=== PATIENT | male | born 1960 ===

== ENCOUNTER → 2017-03-24 | Outpatient (CLI) | payer OTHER | END | disposition home or self-care (01) | LOC: SPEC 16:52 → EEVIPCON 16:52 | PROVIDERS: ATTEND Nurse Practitioner Family | DX: R79.1 Abnormal coagulation profile (principal) | CPT/HCPCS: 36415; 85610 ==

== ENCOUNTER → 2017-06-15 | Outpatient (CLI) | payer OTHER ==
[2017-06-16 00:18] LABS: ALBUMIN 2.8 g/dL (3.4-5.0); ALBUMIN/GLOBULIN RATIO 0.6 (1.0-1.7); CALCIUM 8.9 mg/dL (8.5-10.1); GFR 6.9; POTASSIUM 4.3 mmol/L (3.5-5.1); TOTAL BILIRUBIN 0.3 mg/dL (0.2-1.0); TOTAL PROTEIN 7.5 g/dL (6.4-8.2)
== END | disposition home or self-care (01) ==
LOC: EEVIPCON 23:52 → LAB 23:52
PROVIDERS: ATTEND Nurse Practitioner Family
DX: E87.5 Hyperkalemia (principal)
CPT/HCPCS: 36415; 80053

== ENCOUNTER → 2017-10-18 | Outpatient (CLI) | payer OTHER | END | disposition home or self-care (01) | LOC: SPEC 10:45 → EEVIPCON 10:45 | DX: R79.1 Abnormal coagulation profile (principal) | CPT/HCPCS: 36415; 85610 ==

== ENCOUNTER → 2017-10-21 | Outpatient (CLI) | payer OTHER | END | disposition home or self-care (01) | LOC: SPEC 10:49 → EEVIPCON 10:49 | DX: R79.1 Abnormal coagulation profile (principal); E87.5 Hyperkalemia | CPT/HCPCS: 36415; 85610 ==